=== PATIENT | male | born 1985 | race African-American/Black ===

== ENCOUNTER 2016-09-18 10:21 | Observation (INO) | payer BC ==
[~2016-09-18] VITALS: Ht 180.3 cm; Wt 117.2 kg
[2016-09-18 12:06] LABS: EOSINOPHIL (%) 1.4 % (0-5); EOSINOPHIL COUNT 0.1 K/uL (0-0.3); HEMATOCRIT 42.9 % (38.0-50.0); IMMATURE GRANULOCYTE (%) 0.4 % (0.0-0.7); INSTRUMENT ABS NEUTROPHIL CT 3.3 K/uL; LYMPHOCYTE COUNT 1.4 K/uL (1.0-2.8); MCH 28.1 PG (29.0-34.0); MCHC 33.3 G/DL (30.0-36.0); MCV 84.4 FL (86-99); MEAN PLAT.VOLUME 9.1 uM^3 (9.0-12.4); MONOCYTE (%) 7.3 % (3-12); MONOCYTE COUNT 0.4 K/uL (0-0.8); NEUTROPHIL (%) 63.6 % (45-76); NEUTROPHIL COUNT 3.3 K/uL (1.8-6.4); PLATELET COUNT 368 K/uL (156-360); RBC DIS.WIDTH-CV 12.1 % (11.8-14.6); RBC DIS.WIDTH-SD 36.5 % (39-53); RED BLOOD COUNT 5.08 M/uL (4.00-5.50); WHITE BLOOD COUNT 5.1 K/uL (4.1-10.2)
[2016-09-18 12:17] LABS: CHLORIDE 104 mEq/L (99-109); POTASSIUM 4.3 mEq/L (3.7-5.4); SODIUM 138 mEq/L (136-147)
[2016-09-18 12:19] LABS: GLUCOSE 102 mg/dL (70-99)
[2016-09-18 12:21] LABS: ANION GAP 8 MEQ/L (2-14)
[2016-09-18 12:22] LABS: TOTAL BILIRUBIN 0.5 mg/dL (0.0-1.0)
[2016-09-18 12:23] LABS: ALKALINE PHOSPHATASE 55 IU/L (3-129); GFR ESTIMATE (CALCULATED) > 59 mL/min/
[2016-09-18 12:24] LABS: UREA NITROGEN (BUN) 12 mg/dL (9-23)
[2016-09-18 12:26] LABS: CREATINE KINASE 255 IU/L (1-294); TOTAL CK 255 IU/L (1-294)
[2016-09-18 12:27] LABS: D-DIMER ELISA 0.25 mg/L FEU (< 0.57)
[2016-09-18 12:29] LABS: TROP-I INTERPRETATION NEGATIVE; TROPONIN-I < 0.01 ng/mL (0.0-0.30)
[2016-09-18 12:32] LABS: CK-MB 0.6 ng/mL (0.0-4.9)
[2016-09-18] MEDS ORDERED: LO-DOSE ASPIRIN81 M2 PO (14:00)
[2016-09-18 15:48] VITALS: BP 131/74
[2016-09-18 19:31] LABS: TROP-I INTERPRETATION NEGATIVE; TROPONIN-I < 0.01 ng/mL (0.0-0.30)
[2016-09-18 20:41] VITALS: BP 135/80
[2016-09-19 00:07] VITALS: BP 122/76
[2016-09-19 01:49] LABS: TROP-I INTERPRETATION NEGATIVE; TROPONIN-I < 0.01 ng/mL (0.0-0.30)
[2016-09-19 03:32] VITALS: BP 128/62
[2016-09-19 05:54] LABS: HEMATOCRIT 43.2 % (38.0-50.0); MCH 27.8 PG (29.0-34.0); MCHC 32.9 G/DL (30.0-36.0); MCV 84.5 FL (86-99); MEAN PLAT.VOLUME 8.9 uM^3 (9.0-12.4); PLATELET COUNT 332 K/uL (156-360); RBC DIS.WIDTH-CV 12.1 % (11.8-14.6); RBC DIS.WIDTH-SD 37.2 % (39-53); RED BLOOD COUNT 5.11 M/uL (4.00-5.50); WHITE BLOOD COUNT 5.9 K/uL (4.1-10.2)
[2016-09-19 06:35] LABS: ANION GAP 8 MEQ/L (2-14); CHLORIDE 102 MEQ/L (99-109); GFR ESTIMATE (CALCULATED) > 59 mL/min/; GLUCOSE 96 mg/dL (70-99); HDL CHOLESTEROL 24 MG/DL (Desirable>=40); LDL CHOLESTEROL 130 mg/dL (Desirable<100); NON-HDL CHOLESTEROL 151 mg/dL (Desirable<160); POTASSIUM 4.1 MEQ/L (3.7-5.4); SAMPLE HEMOLYSIS CHECK 0; SAMPLE ICTERIC CHECK 0; SAMPLE LIPEMIA CHECK 0; SODIUM 138 MEQ/L (136-147); TOTAL CHOLESTEROL 175 mg/dL (Desirable<200); TRIGLYCERIDES 106 MG/DL (Normal: <150); UREA NITROGEN (BUN) 11 mg/dL (9-23)
[2016-09-19 08:00] VITALS: BP 137/77
[2016-09-19] MEDS ORDERED: AMLODIPINE BESYL5 MG PO (10:10)
[2016-09-20 09:56] LABS: Estimated Average Glucose 120 mg/dL (70-123); HEMOGLOBIN A1c (GLYCOHEMOGLOB) 5.8 % HGB (Below 5.7)
== END 2016-09-19 11:07 | disposition home or self-care (01) ==
LOC: EDBD 10:21 → EME 10:21 → EDOF 14:08 → 5WEST 15:42
PROVIDERS: Emergency Medicine; Internal Medicine
DX: R07.89 Other chest pain (principal); G47.33 Obstructive sleep apnea (adult) (pediatric); I10 Essential (primary) hypertension; E66.9 Obesity, unspecified; I45.10 Unspecified right bundle-branch block; R42 Dizziness and giddiness; R06.02 Shortness of breath; F41.9 Anxiety disorder, unspecified
CPT/HCPCS: 70450; 71010; 80048; 80053; 80061; 82550; 82553; 83036; 84484; 85025; 85027; 85379; 93005; 99281; 99284; G0378; J7030